=== PATIENT | male | born 2005 | race Caucasian/White ===

== ENCOUNTER 2024-06-07 12:47 | Inpatient (IN) | payer OTHER ==
[~2024-06-07] VITALS: Ht 177.8 cm; Wt 79.6 kg
[2024-06-07 13:12] LABS: VENOUS BASE EXCESS -0.4 (-2.0-2.0); VENOUS HCO3 27.4 MMOL/L (23.0-27.0); VENOUS PARTIAL PRESSURE CO2 57.8 mmHg (38.0-50.0); VENOUS PARTIAL PRESSURE O2 39.2 mmHg (30.0-50.0); VENOUS PH 7.294 UNITS (7.330-7.430); VENOUS STANDARD HCO3 23.5 MMOL/L; VENOUS TOTAL CO2 29.2 MMOL/L (24.0-28.0)
[2024-06-07 13:21] LABS: BASO % 0.6 % (0.0-1.0); EOS # 0.1 10^3/uL (0.0-0.5); EOS % 0.8 % (0.0-3.0); HEMATOCRIT 42.4 % (42.0-52.0); HEMOGLOBIN 14.1 g/dl (13.5-17.5); LYMPH # 1.1 10^3/uL (1.5-5.0); LYMPH % 17.2 % (24.0-44.0); MEAN CORPUSCULAR HEMOGLOBIN 29.7 pg (27.0-33.0); MEAN CORPUSCULAR HGB CONC 33.3 g/dl (32.0-36.5); MEAN CORPUSCULAR VOLUME 89.3 fl (80.0-96.0); MONO # 0.5 10^3/uL (0.0-0.8); MONO % 7.4 % (2.0-8.0); NEUTROPHILS # 4.6 10^3/uL (1.5-8.5); NEUTROPHILS % 73.7 % (36.0-66.0); PLATELET COUNT, AUTOMATED 233 10^3/uL (150-450); RED BLOOD COUNT 4.75 10^6/uL (4.30-6.10); WHITE BLOOD COUNT 6.2 10^3/uL (4.0-10.0)
[2024-06-07 13:36] LABS: ETHYL ALCOHOL (ETHANOL) 0.007 % (0.000-0.010)
[2024-06-07 13:37] LABS: CPK CREATINE PHOSPHOKINASE 196 U/L (46-171)
[2024-06-07 13:38] LABS: ALBUMIN 4.5 G/DL (3.2-5.2); ALKALINE PHOSPHATASE 93 U/L (40-129); ALT/SGPT 22 U/L (7.0-40); AST/SGOT 16 U/L (<34); BILIRUBIN,DIRECT 0.2 MG/DL (<0.4); BILIRUBIN,TOTAL 0.6 MG/DL (0.3-1.2); SALICYLATE LEVEL < 3.0 MG/DL (<30); TOTAL PROTEIN 7.5 G/DL (5.7-8.2)
[2024-06-07 13:40] LABS: THYROID STIMULATING HORMONE 0.703 uIU/ML (0.48-4.17)
[2024-06-07] MEDS: NS (Normal Saline) 0.9% 1,000 ML IV ONE (14:13)
[2024-06-07] MEDS ORDERED: ISOVUE-370 76% 100ML VIAL As Ordered ONE (14:35)
[2024-06-07] MEDS: CHARCOAL ACTIVATED LIQUID 25GM/120ML BTL PO ONE (15:17)
[2024-06-07 15:51] LABS: VENOUS BASE EXCESS -2.6 (-2.0-2.0); VENOUS HCO3 23.7 MMOL/L (23.0-27.0); VENOUS O2 SATURATION 92.9 % (60.0-80.0); VENOUS PARTIAL PRESSURE CO2 46.6 mmHg (38.0-50.0); VENOUS PARTIAL PRESSURE O2 65.9 mmHg (30.0-50.0); VENOUS PH 7.324 UNITS (7.330-7.430); VENOUS STANDARD HCO3 22.2 MMOL/L; VENOUS TOTAL CO2 25.1 MMOL/L (24.0-28.0)
[2024-06-07 16:21] LABS: BLOOD UREA NITROGEN 9 MG/DL (9-23); CALCIUM LEVEL 8.1 MG/DL (8.5-10.1); CARBON DIOXIDE LEVEL 24 MMOL/L (20-31); CHLORIDE LEVEL 107 MMOL/L (98-107); CREATININE FOR GFR 0.83 MG/DL (0.70-1.30); GLOMERULAR FILTRATION RATE > 60.0 (>60); GLUCOSE, FASTING 79 MG/DL (60-100); SODIUM LEVEL 141 MMOL/L (136-145)
[2024-06-07 16:43] LABS: AMPHETAMINES LEVEL URINE NEGATIVE (NEGATIVE); BARBITURATES URINE NEGATIVE (NEGATIVE); BENZODIAZEPINES URINE NEGATIVE (NEGATIVE); CANNABINOIDS URINE NEGATIVE (NEGATIVE); COCAINE METABOLITE URINE NEGATIVE (NEGATIVE); METHADONE URINE NEGATIVE (NEGATIVE); OPIATES URINE NEGATIVE (NEGATIVE); PHENCYCLIDINE URINE NEGATIVE (NEGATIVE)
[2024-06-07] MEDS ORDERED: HOME MED LIST COMPLETE! XX SCH (20:25)
[2024-06-07] MEDS ORDERED: IBUPROFEN 400MG TAB PO PRN (21:40)
[2024-06-07] MEDS ORDERED: traZODone 50 MG TAB PO PRN (21:40)
[2024-06-07] MEDS ORDERED: MAALOX 30 ML SUSP *UDC PO PRN (21:40)
[2024-06-07] MEDS ORDERED: MOM 30ML SUSPENSION UDC PO PRN (21:40)
[2024-06-07] MEDS ORDERED: diphenhydrAMINE 25MG CAP PO PRN (21:40)
[2024-06-07] MEDS ORDERED: ACETAMINOPHEN 325 MG TAB PO PRN (21:40)
[2024-06-07 23:00] VITALS: BP 128/58; TEMP 97.8; O2SAT 100
[2024-06-08 06:44] VITALS: BP 114/53; TEMP 97.1; O2SAT 97
[2024-06-08] MEDS: ESCITALOPRAM OXALATE 10 MG TAB (LEXAPRO) PO SCH (10:05)
[2024-06-08 16:05] VITALS: BP 149/69; TEMP 97.5; O2SAT 100
[2024-06-09 06:18] VITALS: BP 142/66; TEMP 97.1; O2SAT 100
[2024-06-09 16:29] VITALS: BP 140/65; TEMP 97.5; O2SAT 98
[2024-06-10 06:47] VITALS: BP 129/60; TEMP 97.2; O2SAT 97
[2024-06-10 14:59] VITALS: BP 117/54; TEMP 97.7; O2SAT 99
[2024-06-11 06:22] VITALS: BP 117/56; TEMP 97.1; O2SAT 99
[2024-06-11 15:54] VITALS: BP 121/55; TEMP 97.6; O2SAT 100
[2024-06-12 06:20] VITALS: BP 119/53; TEMP 97.9; O2SAT 100
[2024-06-12 15:42] VITALS: BP 103/58; TEMP 97.4; O2SAT 98
[2024-06-13 06:25] VITALS: BP 136/60; TEMP 98.2; O2SAT 98
[2024-06-13 15:07] VITALS: BP 130/61; TEMP 97.6; O2SAT 97
[2024-06-14 06:20] VITALS: BP 136/63; TEMP 97.2; O2SAT 98
[2024-06-14 15:57] VITALS: BP 135/61; TEMP 97.6; O2SAT 98
[2024-06-15 06:25] VITALS: BP 124/55; TEMP 97.9; O2SAT 96
[2024-06-15 16:32] VITALS: BP 133/63; TEMP 97.9; O2SAT 99
[2024-06-15] MEDS: ESCITALOPRAM OXALATE 10 MG TAB (LEXAPRO) PO SCH (20:38)
[2024-06-16 06:41] VITALS: BP 136/63; TEMP 98; O2SAT 99
[2024-06-16 15:57] VITALS: BP 132/62; TEMP 97.7; O2SAT 99
[2024-06-17 06:26] VITALS: BP 159/60; TEMP 97.9; O2SAT 99
[2024-06-17 16:35] VITALS: BP 134/66; TEMP 97.6; O2SAT 99
[2024-06-18] MEDS ORDERED: TRAZ-252 PO (02:18)
[2024-06-18] MEDS ORDERED: ABIL1TAB11 PO (02:18)
[2024-06-18] MEDS ORDERED: LEXA1TAB PO (02:18)
[2024-06-18 06:26] VITALS: BP 148/62; TEMP 97.6; O2SAT 98
== END 2024-06-18 10:32 | disposition home or self-care (01) | DRG 885 ==
LOC: M ED 12:47 → EDBD 12:47 → M ED INP 21:38 → M PSY 23:07
PROVIDERS: ADMIT Psychiatry & Neurology Neurology; ATTEND Psychiatry & Neurology Neurology
DX: F33.1 Major depressive disorder, recurrent, moderate (principal); R45.851 Suicidal ideations; F41.9 Anxiety disorder, unspecified; Z91.51 Personal history of suicidal behavior

== ENCOUNTER 2024-09-27 08:58 | Inpatient (IN) | payer OTHER ==
[~2024-09-27] VITALS: Ht 177.8 cm; Wt 85.9 kg
[~2024-09-27 08:58] MED LIST: ABIL1TAB11 PO; LEXA1TAB PO; TRAZ-252 PO
[2024-09-27 09:33] LABS: PLATELET COUNT, AUTOMATED 281 10^3/uL (150-450)
[2024-09-27 09:58] LABS: AMPHETAMINES LEVEL URINE NEGATIVE (NEGATIVE)
[2024-09-27 09:59] LABS: BARBITURATES URINE NEGATIVE (NEGATIVE); BENZODIAZEPINES URINE NEGATIVE (NEGATIVE); CANNABINOIDS URINE NEGATIVE (NEGATIVE); COCAINE METABOLITE URINE NEGATIVE (NEGATIVE); METHADONE URINE NEGATIVE (NEGATIVE); OPIATES URINE NEGATIVE (NEGATIVE); PHENCYCLIDINE URINE NEGATIVE (NEGATIVE)
[2024-09-27 10:02] LABS: ETHYL ALCOHOL (ETHANOL) 0.004 % (0.000-0.010)
[2024-09-27 10:03] LABS: SALICYLATE LEVEL < 3.0 MG/DL (<30)
[2024-09-27 10:12] LABS: ALT/SGPT 28 U/L (7.0-40); AST/SGOT 19 U/L (<34); CALCIUM LEVEL 9.3 MG/DL (8.5-10.1); CARBON DIOXIDE LEVEL 27 MMOL/L (20-31); CHLORIDE LEVEL 103 MMOL/L (98-107); CREATININE FOR GFR 0.82 MG/DL (0.70-1.30); GLOMERULAR FILTRATION RATE > 90.0 (>60); POTASSIUM SERUM 4.2 MMOL/L (3.5-5.1); SODIUM LEVEL 141 MMOL/L (136-145)
[2024-09-27] MEDS ORDERED: HOME MED LIST COMPLETE! XX SCH (13:50)
[2024-09-27] MEDS ORDERED: ACETAMINOPHEN 325 MG TAB PO PRN (15:45)
[2024-09-27] MEDS ORDERED: IBUPROFEN 400 MG TAB PO PRN (15:45)
[2024-09-27] MEDS ORDERED: MAALOX 30 ML SUSP *UDC PO PRN (15:45)
[2024-09-27] MEDS ORDERED: traZODone 50 MG TAB PO PRN (15:45)
[2024-09-27] MEDS ORDERED: MOM 30 ML SUSPENSION UDC PO PRN (15:45)
[2024-09-27 17:19] VITALS: BP 121/58; TEMP 98.3; O2SAT 97
[2024-09-27] MEDS: NICOTINE 14 MG/24 HR TRANSDERMAL TD SCH (20:12)
[2024-09-28 06:24] VITALS: BP 103/56; TEMP 97.1; O2SAT 98
[2024-09-28] MEDS: SERTRALINE HCL 50 MG TAB PO SCH (09:42)
[2024-09-28 15:33] VITALS: BP 137/63; TEMP 98.6; O2SAT 97
[2024-09-29 06:27] VITALS: BP 94/50; TEMP 97.9; O2SAT 97
[2024-09-29 14:42] VITALS: BP 140/66; TEMP 98.7; O2SAT 97
[2024-09-30 06:52] VITALS: BP 131/61; TEMP 97.4; O2SAT 97
[2024-09-30] MEDS: SERTRALINE HCL 50 MG TAB PO ONE (10:08)
[2024-09-30 15:41] VITALS: BP 139/66; TEMP 98.4; O2SAT 100
[2024-10-01 06:56] VITALS: BP 118/58; TEMP 97.7; O2SAT 96
[2024-10-01] MEDS: SERTRALINE 100 MG TAB PO SCH (08:36)
[2024-10-01 15:10] VITALS: BP 139/74; TEMP 98.4; O2SAT 98
[2024-10-02 06:36] VITALS: BP 119/55; TEMP 97.8; O2SAT 99
[2024-10-02 15:17] VITALS: BP 140/70; TEMP 98.3; O2SAT 99
[2024-10-03 06:39] VITALS: BP 102/56; TEMP 97; O2SAT 100
[2024-10-03 15:30] VITALS: BP 139/63; TEMP 98.3; O2SAT 98
[2024-10-04 06:34] VITALS: BP 112/51; TEMP 97.5; O2SAT 99
[2024-10-04 16:31] VITALS: BP 140/63; TEMP 98.6; O2SAT 99
[2024-10-05] MEDS ORDERED: ZOLO100T PO (01:52)
[2024-10-05 06:41] VITALS: BP 113/51; TEMP 97.4; O2SAT 98
== END 2024-10-05 13:17 | disposition home or self-care (01) | DRG 885 ==
LOC: M ED 08:58 → M ED INP 15:45 → M PSY 16:14
PROVIDERS: ADMIT General Practice; ATTEND General Practice
DX: F33.1 Major depressive disorder, recurrent, moderate (principal); T71.162A Asphyxiation due to hanging, intentional self-harm, initial encounter; F41.9 Anxiety disorder, unspecified; F17.210 Nicotine dependence, cigarettes, uncomplicated; F17.290 Nicotine dependence, other tobacco product, uncomplicated; F43.10 Post-traumatic stress disorder, unspecified; T14.91XA Suicide attempt, initial encounter; Z91.51 Personal history of suicidal behavior; Z56.6 Other physical and mental strain related to work